=== PATIENT | male | born 1995 | race Caucasian/White ===

== ENCOUNTER 2018-03-21 22:19 | Emergency (ER) | payer OTHER ==
[2018-03-21] MEDS: LIDOCAINE 2% 20 ML VIAL. IJ (22:59)
[2018-03-22] MEDS: DIPHTH,PERTUSS(ACELL),TET TOX 0.5 ML DISP.SYRIN. VAX IM (00:23)
[2018-03-22] MEDS: NEOMY/BACITR/POLYMYXIN OINT PACKET. TP (01:14)
[2018-03-22] MEDS ORDERED: CEPHALEXIN 250 MG CAPSULE. PO (01:15)
== END 2018-03-22 01:15 | disposition home or self-care (01) ==
LOC: ER 03-22 01:15
DX: S61.102A Unspecified open wound of left thumb with damage to nail, initial encounter (principal); W26.0XXA Contact with knife, initial encounter; Y93.89 Activity, other specified; Y99.8 Other external cause status; Y92.89 Other specified places as the place of occurrence of the external cause
CPT/HCPCS: 64450; 73140; 90471; 90715; 99284-25; J2001